=== PATIENT | male | born 1975 | race Two or more races ===

== ENCOUNTER 2017-06-22 15:08 | Emergency (ER) | payer SELFPAY ==
[~2017-06-22] VITALS: Ht 165.1 cm; Wt 68.0 kg
[2017-06-22 15:19] VITALS: BP 130/82
== END 2017-06-22 17:49 | disposition home or self-care (01) ==
LOC: ER 15:10
DX: M25.512 Pain in left shoulder (principal); V49.49XA Driver injured in collision with other motor vehicles in traffic accident, initial encounter; Y93.89 Activity, other specified; Y92.413 State road as the place of occurrence of the external cause; Y99.8 Other external cause status
CPT/HCPCS: 73030; 99284; A4606; Z7610